=== PATIENT | female | born 1990 | race Two or more races ===

== ENCOUNTER 2021-01-08 17:28 | Emergency (ER) | payer SELFPAY ==
[~2021-01-08] VITALS: Ht 167.6 cm; Wt 108.9 kg
[2021-01-08 17:34] VITALS: BP 145/89
== END 2021-01-08 18:23 | disposition left against medical advice (07) ==
LOC: ER 17:29
DX: K08.89 Other specified disorders of teeth and supporting structures (principal); Z53.21 Procedure and treatment not carried out due to patient leaving prior to being seen by health care provider